=== PATIENT | female | born 1995 | race Caucasian/White ===

== ENCOUNTER 2018-04-13 09:37 | Outpatient (RCR) | payer BC ==
[~2018-04-13 09:37] MED LIST: PANT40TA3
--- NOTE | 2018-04-13 12:44 | Diagnostic Imaging Report ---
EXAMINATION: Scoliosis. INDICATION: Right-sided sciatica. FINDINGS: AP and lateral standing views of the spine were obtained. There are no prior studies available for comparison. There is minimal curvature of the thoracolumbar junction, convex to the left. Using the Zarco method of analysis with the superior endplates of T9 and the inferior endplate of L1 as landmarks, the measured angle of scoliosis is 4 degrees +/- 2-3 degrees. There is no fracture or acute bony abnormality evident. IMPRESSION: 1. There is minimal levoscoliosis of the thoracolumbar junction. The measured angle of scoliosis is 4 degrees +/- 2-3 degrees. 2. There is no acute bony abnormality noted. Dictated by: Dictated on workstation # [id number]
== END 2018-07-12 | disposition home or self-care (01) ==
LOC: RAD 09:37
PROVIDERS: ATTEND Nurse Practitioner Family
DX: M41.85 Other forms of scoliosis, thoracolumbar region (principal); M54.41 Lumbago with sciatica, right side
CPT/HCPCS: 72082